=== PATIENT | female | born 1980 | race Caucasian/White ===

== ENCOUNTER → 2021-05-05 | Outpatient (CLI) | payer OTHER ==
[~2021-05-05] MED LIST: DULOXETINE HCL60 MG PO; ELAVIL 25 MG TA25 MG PO
== END ==
LOC: RAD 12:17
DX: M54.2 Cervicalgia (principal); M54.9 Dorsalgia, unspecified; M47.814 Spondylosis without myelopathy or radiculopathy, thoracic region; M47.816 Spondylosis without myelopathy or radiculopathy, lumbar region
CPT/HCPCS: 72040; 72070; 72100

== ENCOUNTER → 2021-07-07 | Outpatient (CLI) | payer OTHER | LOC: HEART 5 09:54 | DX: R07.9 Chest pain, unspecified (principal) | CPT/HCPCS: 93306 ==

== ENCOUNTER → 2021-07-16 | Outpatient (CLI) | payer OTHER ==
[2021-07-16 12:34] LABS: HEMOGLOBIN 12.5 gm/dl (12.3-15.3); RED BLOOD COUNT 4.99 M/UL (4.00-5.10); WHITE BLOOD COUNT 5.3 K/UL (4.5-11.0)
[2021-07-16 12:49] LABS: BUN/CREATININE RATIO 17 (0-10)
== END ==
LOC: LAB 11:56
PROVIDERS: Internal Medicine Interventional Cardiology
DX: R07.9 Chest pain, unspecified (principal); I10 Essential (primary) hypertension; E78.00 Pure hypercholesterolemia, unspecified; I20.9 Angina pectoris, unspecified
CPT/HCPCS: 36415; 80048; 85025; 85610; 85730; 93005

== ENCOUNTER → 2021-08-20 | Outpatient (CLI) | payer OTHER | LOC: SLEEP 15:26 | DX: G47.10 Hypersomnia, unspecified (principal) | CPT/HCPCS: 95810 ==

== ENCOUNTER → 2021-11-03 | Outpatient (CLI) | payer OTHER ==
[~2021-11-03] MED LIST changes: +BRINTELLIX10 MG PO; +CYMBALTA60 MG PO; +GLUCOPHAGE 500500 MG PO; +ISORDIL TAB 3030 MG PO; +LIPITOR TAB 1010 MG PO; +LOPRESSOR 25 MG25 MG PO; +PROTONIX 40 MG40 M1 PO; +TRICOR 145 MG145 MG PO; +VITAMIN B-121000 MC3 PO; +VITAMIN D31250 MCG PO; +XYZAL5 MG PO
== END ==
LOC: CATH 09:24
DX: I20.9 Angina pectoris, unspecified (principal); I10 Essential (primary) hypertension; E11.9 Type 2 diabetes mellitus without complications; E78.00 Pure hypercholesterolemia, unspecified; F32.A Depression, unspecified; F41.9 Anxiety disorder, unspecified; K58.9 Irritable bowel syndrome, unspecified; Z79.899 Other long term (current) drug therapy; Z79.84 Long term (current) use of oral hypoglycemic drugs; Z82.49 Family history of ischemic heart disease and other diseases of the circulatory system
CPT/HCPCS: 84703; 99152; C1769; C1887; C1894; J1644; J2250; J3010; Q9967

== ENCOUNTER → 2022-04-23 | Outpatient (CLI) | payer OTHER | LOC: RAD 11:10 | DX: M54.2 Cervicalgia (principal); M54.6 Pain in thoracic spine; M47.812 Spondylosis without myelopathy or radiculopathy, cervical region | CPT/HCPCS: 72040; 72100 ==

== ENCOUNTER → 2022-05-07 | Outpatient (CLI) | payer OTHER | LOC: NM 10:00 | DX: R11.0 Nausea (principal) | CPT/HCPCS: 78264; A9541 ==

== ENCOUNTER → 2022-06-10 | Outpatient (CLI) | payer OTHER | LOC: KOH-I 09:10 | DX: M25.562 Pain in left knee (principal) | CPT/HCPCS: 73560 ==